=== PATIENT | male | born 1970 | race Caucasian/White ===

== ENCOUNTER → 2020-11-03 13:38 | Outpatient (CLI) | payer BC, SELFPAY ==
[2020-11-03 15:27] LABS: PSA,Total - Annual Screen 0.96 ng/mL (0.00-4.00)
== END ==
PROVIDERS: PCP Nurse Practitioner Primary Care; Referring Provider Urology; Visit Provider Urology
DX: Z12.5 Encounter for screening for malignant neoplasm of prostate (principal)
CPT/HCPCS: 36415; 84153; G0103

== ENCOUNTER → 2021-09-29 | Outpatient (CLI) | payer BC, SELFPAY ==
--- NOTE | 2021-09-29 17:18 | MRI_ITS ---
STUDY: MRI CERVICAL SPINE WITHOUT CONTRAST REASON FOR EXAM: Male, 51 years old. Pain -- Please include T1 and T2 TECHNIQUE: Standardized fat and water weighted pulse sequences were obtained in the sagittal and axial planes. COMPARISON: 04/25/2014 cervical FINDINGS: Normal foramen magnum and brainstem-cervical cord junction. Normal craniovertebral junction. Normal anterior atlantoaxial articulation. Normal odontoid process. Normal cervical lordosis. Normal vertebral bodies and posterior osseous elements. C2-3: Normal endplates. Normal disc height, signal and morphology. Normal central canal and intervertebral neural foramina. C3-4: Disc desiccation with preserved disc space is present. Bilateral uncovertebral joint arthropathy and facet arthropathy is present resulting in mild to moderate bilateral foraminal narrowing. C4-5: Disc desiccation and mild decreased disc space with disc osteophyte complex resulting in moderate bilateral foraminal narrowing. No significant spinal canal narrowing. C5-6: Degenerative disc changes and decreased disc space with left paracentral disc osteophyte complex and uncovertebral joint arthropathy resulting in moderate to severe left and moderate right foraminal narrowing. No significant spinal canal narrowing. C6-7: Disc osteophyte complex and uncovertebral joint arthropathy are present resulting in mild spinal canal narrowing with severe left and moderate right foraminal narrowing. C7-T1: Degenerative disc changes and mild decreased disc space with disc osteophyte complex effacing the thecal sac resulting in moderate spinal canal narrowing with no significant foraminal narrowing. T1/T2: Degenerative disc changes with right paracentral disc bulge resulting in severe right proximal foraminal narrowing and moderate right spinal canal narrowing. Normal cervical cord. Normal visualized soft tissue structures. MRI/Spine Cervical (Routine) IMPRESSION: 1. C3-4 mild to moderate bilateral foraminal narrowing secondary to uncovertebral joint arthropathy. 2. C4-5 moderate bilateral foraminal narrowing secondary disc osteophyte complex. 3. C5-6 moderate to severe left foraminal narrowing due to uncovertebral joint arthropathy and left paracentral disc osteophyte complex. 4. C6-7 mild spinal canal narrowing with severe left and moderate right foraminal narrowing. 5. T1/T2 right paracentral disc bulge causing severe proximal right foraminal narrowing and moderate right spinal canal narrowing. Electronically Signed: Andrew Morales DO at 13:02 EDT ,
== END | disposition home or self-care (01) ==
LOC: MRI 17:18
PROVIDERS: PCP Nurse Practitioner Primary Care
DX: M51.04 Intervertebral disc disorders with myelopathy, thoracic region (principal); M50.00 Cervical disc disorder with myelopathy, unspecified cervical region
CPT/HCPCS: 72141

== ENCOUNTER → 2023-11-11 | Outpatient (CLI) | payer MEDICAID, SELFPAY ==
--- NOTE | 2023-11-11 16:19 | MRI_ITS ---
STUDY: MRI CERVICAL SPINE WITHOUT CONTRAST REASON FOR EXAM: Male, 53 years old. hand weakness TECHNIQUE: Standardized fat and water weighted pulse sequences were obtained in the sagittal and axial planes. COMPARISON: 09/29/2021 FINDINGS: Normal foramen magnum and brainstem-cervical cord junction. Normal craniovertebral junction. Normal anterior atlantoaxial articulation. Normal odontoid process. Normal cervical lordosis. Normal vertebral bodies and posterior osseous elements. C2-3: Normal endplates. Normal disc height, signal and morphology. Normal central canal and intervertebral neural foramina. C3-4: Normal endplates. Normal disc height, signal and morphology. Normal central canal and intervertebral neural foramina. C4-5: Interval development of a moderate broad disc osteophyte complex asymmetric to the right which produces moderate spinal stenosis with abutment of the central spinal cord and the moderate right neural foraminal stenosis. C5-6: Interval posterior decompression and transpedicular fixation with anatomic alignment with no spinal stenosis or neural foraminal stenosis. C6-7: Interval posterior decompression and transpedicular fixation with anatomic alignment with no spinal stenosis or neural foraminal stenosis. C7-T1: Interval posterior decompression and transpedicular fixation with anatomic alignment with no spinal stenosis or neural foraminal stenosis. Normal cervical cord. Normal visualized soft tissue structures. MRI/Spine Cervical (Routine) IMPRESSION: Interval transpedicular fixation from C5 through C7 with development of degenerative disc disease at C4/C5. Electronically Signed: Camilo Irene MD at 0:32 EDT ,
== END | disposition home or self-care (01) ==
LOC: MRI 16:12
PROVIDERS: PCP Nurse Practitioner Primary Care; Referring Provider Orthopaedic Surgery Orthopaedic Surgery of the Spine; Visit Provider Orthopaedic Surgery Orthopaedic Surgery of the Spine
DX: R29.898 Other symptoms and signs involving the musculoskeletal system (principal); M50.00 Cervical disc disorder with myelopathy, unspecified cervical region
CPT/HCPCS: 72141